=== PATIENT | female | born 2000 | race African-American/Black ===

== ENCOUNTER 2022-04-13 19:01 | Emergency (ER) | payer OTHER ==
[~2022-04-13] VITALS: Ht 162.6 cm; Wt 104.0 kg
[2022-04-13] MEDS ORDERED: IMOD MT (20:57)
[2022-04-13 21:24] VITALS: BP 114/75
== END 2022-04-13 21:24 | disposition home or self-care (01) ==
LOC: ER 19:01
DX: R19.7 Diarrhea, unspecified (principal); R11.0 Nausea; M79.18 Myalgia, other site; Z20.822 Contact with and (suspected) exposure to COVID-19
CPT/HCPCS: 87426; 99283; C9803